=== PATIENT | male | born 2000 | race Caucasian/White ===

== ENCOUNTER 2022-07-25 19:08 | Emergency (ER) | payer BC, SELFPAY ==
[2022-07-25 19:39] VITALS: BP 168/115; PULSE 98; RESP 14; TEMP 37.4; O2SAT 98; BMI 25.0
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
[2022-07-25 20:08] VITALS: BP 144/84; PULSE 98; RESP 14; TEMP 37.4
== END 2022-07-25 20:23 | disposition home or self-care (01) ==
PROVIDERS: Emergency Provider Student in an Organized Health Care Education/Training Program
DX: S09.90XA Unspecified injury of head, initial encounter (principal)
CPT/HCPCS: 99282; 99283